=== PATIENT | male | born 1990 | race African-American/Black ===

== ENCOUNTER 2021-09-23 17:22 | Emergency (ER) | payer OTHER ==
[2021-09-23 17:35] VITALS: BP 124/83; PULSE 64; TEMP 98; BMI 25.7
== END 2021-09-23 20:03 | disposition home or self-care (01) ==
LOC: JERFT 17:22
PROC: 0HQGXZZ Repair Left Hand Skin, External Approach (ICD-10-PCS; principal; 2021-09-23)
DX: S60.412A Abrasion of right middle finger, initial encounter (principal); W26.8XXA Contact with other sharp object(s), not elsewhere classified, initial encounter
CPT/HCPCS: 99283-25